=== PATIENT | male | born 1930 | race Caucasian/White ===

== ENCOUNTER 2018-07-29 18:03 | Emergency (ER) | payer OTHER ==
[~2018-07-29] VITALS: Ht 175.3 cm; Wt 83.0 kg
[2018-07-29 19:16] LABS: BASOPHILS # (AUTO) 0.02 x10^3/uL (0-0.1); BASOPHILS % (AUTO) 0 % (0-1); EOSINOPHILS # (AUTO) 0.13 x10^3/uL (0-0.4); EOSINOPHILS % (AUTO) 1 % (1-7); LYMPHOCYTES # (AUTO) 1.05 x10^3/uL (1-3.4); LYMPHOCYTES % (AUTO) 10 % (22-44); MD NO; MEAN CORPUSCULAR HEMOGLOBIN 29.2 pg (27.5-34.5); MEAN CORPUSCULAR HGB CONC 33.4 g/dL (33.2-36.2); MEAN CORPUSCULAR VOLUME 87.4 fL (81-97); MEAN PLATELET VOLUME 7.3 fL (7.4-10.4); MONOCYTES # (AUTO) 0.67 x10^3/uL (0.2-0.8); MONOCYTES % (AUTO) 6 % (2-9); NEUTROPHILS # (AUTO) 8.75 x10^3/uL (1.8-6.8); NEUTROPHILS % (AUTO) 82 % (42-75); PLATELET COUNT 478 x10^3/uL (130-400); RED CELL DISTRIBUTION WIDTH 14.4 % (9.4-14.8)
[2018-07-29 19:17] LABS: ALANINE AMINOTRANSFERASE 19 U/L (12-78); ANION GAP 8 mmol/L (5-15); CALCIUM 8.2 mg/dL (8.5-10.1); CHLORIDE 105 mmol/L (98-107); CREATININE 0.66 mg/dL (0.7-1.3)
[2018-07-29 19:21] LABS: ALKALINE PHOSPHATASE 64 U/L (45-117); BILIRUBIN,TOTAL 0.2 mg/dL (0.2-1.0); TOTAL PROTEIN 7.8 g/dL (6.4-8.2)
[2018-07-29 20:08] VITALS: BP 165/80
[2018-07-29] MEDS ORDERED: CLINDAMYCIN 150 MG/ML, 6ML ONE (20:53)
[2018-07-29] MEDS ORDERED: CLINDAMYCIN 150 MG/ML, 6ML IM ONE (21:00)
== END 2018-07-29 21:51 | disposition home or self-care (01) ==
LOC: ED 21:19
DX: L03.116 Cellulitis of left lower limb (principal)
CPT/HCPCS: 36415; 71045; 73630; 80053; 83880; 85025; 93005; 93971; 96372; 99284; S0077